=== PATIENT | female | born 1990 | race Two or more races ===

== ENCOUNTER 2019-10-29 23:22 | Emergency (ER) | payer OTHER ==
[~2019-10-29] VITALS: Ht 160 cm; Wt 50.8 kg
== END 2019-10-30 00:49 | disposition home or self-care (01) ==
LOC: ER 23:22
DX: S61.111A Laceration without foreign body of right thumb with damage to nail, initial encounter (principal); W27.8XXA Contact with other nonpowered hand tool, initial encounter; Y93.89 Activity, other specified; Y92.018 Other place in single-family (private) house as the place of occurrence of the external cause; Y99.8 Other external cause status

== ENCOUNTER 2020-05-12 13:32 | Outpatient (CLI) | payer OTHER | END 2020-05-12 16:42 | disposition home or self-care (01) | LOC: OFIC 805 13:32 | PROVIDERS: ATTEND Otolaryngology Otology & Neurotology | DX: K11.22 Acute recurrent sialoadenitis (principal); R22.1 Localized swelling, mass and lump, neck; J34.89 Other specified disorders of nose and nasal sinuses; J30.89 Other allergic rhinitis ==

== ENCOUNTER 2020-06-09 10:12 | Outpatient (CLI) | payer OTHER | END 2020-06-09 10:24 | disposition home or self-care (01) | LOC: TOM 10:12 | PROVIDERS: ATTEND Otolaryngology Otology & Neurotology | DX: R93.89 Abnormal findings on diagnostic imaging of other specified body structures (principal); M53.82 Other specified dorsopathies, cervical region; K11.21 Acute sialoadenitis; K11.5 Sialolithiasis ==

== ENCOUNTER → 2020-06-12 | Outpatient (CLI) | payer OTHER | END | disposition home or self-care (01) | LOC: OFIC 805 13:32 | PROVIDERS: ATTEND Otolaryngology Otology & Neurotology | DX: J30.89 Other allergic rhinitis (principal); K11.22 Acute recurrent sialoadenitis; H69.81 Other specified disorders of Eustachian tube, right ear ==